=== PATIENT | male | born 2000 | race Caucasian/White ===

== ENCOUNTER 2022-02-03 07:55 | Emergency (ER) | payer BC, MEDICAID, SELFPAY ==
[2022-02-03 08:01] VITALS: BP 139/85; PULSE 97; RESP 14; TEMP 36.6; O2SAT 97
--- NOTE | 2022-02-03 08:24 | ED_ITS ---
HPI - Dental/Oral General: Chief complaint: Dental/Oral Stated complaint: mouth pain Time Seen by Provider: 02/03/22 07:57 Source: patient Mode of arrival: ambulatory History of Present Illness: 21-year-old male comes in complaining of right lower jaw pain for the last 2 to 3 days states he has had swelling along the gumline no fever no difficulty speaking or swallowing MD Complaint: tooth pain Onset (ago): day(s) (2-3) Duration: intermittent Severity: moderate Relieving factors: nothing Exacerbating factors: chewing and cold Context: history of dental caries Associated symptoms: Reports ear or mastoid pain and gum swelling; Denies fever(s), odynophagia, sore throat or tongue swelling Treatment prior to arrival: none Review of Systems Const: Denies: fever(s) ENMT: Reports: mouth pain, dental pain and ear or mastoid pain; Denies: throat pain, odynophagia or hoarseness Card: Denies: chest pain, edema, dyspnea on exertion or orthopnea Resp: Denies: dyspnea, productive cough or non-productive cough GI: Denies: abdominal pain, nausea, vomiting, hematemesis, coffee ground emesis, diarrhea, constipation, bloating, hematochezia or melena : Denies: flank pain, dysuria, urinary frequency or urinary urgency Skin/Breast: Denies: rash or pruritus All/Imm: Denies: tongue swelling PFSH ED PFSH: Medical History Physically able to work Social History Smoking and tobacco status: current every day smoker Alcohol intake: never Marital status: Single Number of children: 0 Current occupational status: unemployed Physical Exam Const: GENERAL APPEARANCE: cooperative and comfortable ORIENTATION/CONSCIOU SNESS: Yes awake, Yes oriented to person, Yes oriented to place and Yes oriented to time HENMT: COMMON NORMALS: normocephalic, atraumatic, hearing grossly normal bilaterally, external ears normal, EAC's normal, TM's normal bilaterally, Normal nasal mucous membranes and turbinates present, moist oral mucous membranes and oropharynx normal HEAD & SCALP: normocephalic and atraumatic NOSE: Normal nasal mucous membranes and turbinates present EXTERNAL EAR: Yes external ears normal EXTERNAL AUDITORY CANAL: EAC's normal TYMPANIC MEMBRANE: TM's normal bilaterally OTHER: Dental pain with poor dentition right mandibular premolar. Aphthous ulcer on the lateral aspect of the right side of the anterior tongue Eye: COMMON NORMALS: conjunctivae normal and no scleral icterus CONJUNCTIVA: Yes conjunctivae normal Neck/C-Spine: COMMON NORMALS: full ROM, no lymphadenopathy, supple and no JVD Lymph: LYMPHATIC: no lymphadenopathy noted and no lymphedema noted Resp: COMMON NORMALS: normal respiratory effort, No retractions, No use of accessory muscles and clear to auscultation bilaterally AUSCULTATION: clear to auscultation bilaterally Cardio: COMMON NORMALS: no JVD, regular rate, regular rhythm and No murmurs present (Cardio) RATE: regular rate RHYTHM: regular rhythm GI: COMMON NORMALS: Soft to palpation and No hepatosplenomegaly present AUSCULTATION: Yes normoactive bowel sounds PALPATION: Yes Soft to palpation, No Tenderness to palpation present (GI), No Guarding due to palpation present (GI) and Yes No hepatosplenomegaly present Extremity: COMMON NORMALS: normal to inspection, capillary refill normal, no clubbing, cyanosis or edema, no calf tenderness and no pedal edema Neuro: SENSORIUM/ORIENTATION: Yes oriented to person, Yes oriented to place and Yes oriented to time Skin: COMMON NORMALS: no rashes or lesions noted GENERAL SKIN EXAM: no rashes or lesions noted Course Vital Signs: Vital signs: Vital Signs Temperature 97.9 F 02/03/22 08:32 Pulse Rate 97 02/03/22 08:32 Respiratory Rate 14 02/03/22 08:32 Blood Pressure 139/85 02/03/22 08:32 Pulse Oximetry 97 02/03/22 08:32 Oxygen Delivery Tn thod 02/03/22 08:01 MDM - Dental/Oral Medical Decision Making Start oral antibiotics recommend follow-up with dentist for definitive care as soon as he is able Medical Records I reviewed the patient's medical records. Discharge Plan Discharge Patient Disposition: Home Clinical Impression: Dental caries, Aphthous ulcer Condition: Stable Prescriptions: New amoxicillin-pot clavulanate 875-125 mg tablet 1 tab PO BID Qty: 20 0RF Discharge Orders: Discharge ED (Routine); Ordered 02/03/22 Ordered By: Ryder Avendaño Discharge Diet: Usual diet Discharge Activity: Resume usual activity Patient Instructions: Opioid Safety, Pain Management Activity Restrictions/Additional Instructions: You were seen in the emergency room for tooth pain. Start on Augmentin twice daily for 10 days follow-up with primary care doctor. You also had a small aphthous ulcer on the right side of your tongue you can gargle with hydrogen peroxide for relief. Coding Level of Care Code ED Costume Draper for Scar Stein
[2022-02-03 08:32] VITALS: BP 139/85; PULSE 97; RESP 14; TEMP 36.6; O2SAT 97
== END 2022-02-03 08:34 | disposition home or self-care (01) ==
PROVIDERS: Emergency Provider Family Medicine
DX: K02.9 Dental caries, unspecified (principal); K12.0 Recurrent oral aphthae
CPT/HCPCS: 99283